=== PATIENT | female | born 1960 | race Caucasian/White ===

== ENCOUNTER 2017-12-27 10:32 | Inpatient (IN) ==
[2017-12-27] MEDS ORDERED: ASPIRIN 325 MG TABLET PO ONE (11:24)
[2017-12-27] MEDS ORDERED: MAGNESIUM SULF RIDER 2 GM in PREMIX 1 EACH IV PRN ×2 (11:24→20:10)
[2017-12-27] MEDS ORDERED: DIAZEPAM 5 MG TABLET PO ONE ×2 (11:24→20:10)
[2017-12-27] MEDS ORDERED: diphenhydrAMINE CAP 25 MG CAPSULE PO ONE ×2 (11:24→20:10)
[2017-12-27] MEDS ORDERED: POTASSIUM CHLORIDE RIDER 10 MEQ in PREMIX 1 EACH IV PRN ×2 (11:24→20:10)
[2017-12-27] MEDS ORDERED: LIDOCAINE 1% 20 ML VIAL ONE (11:46)
[2017-12-27] MEDS ORDERED: ASPIRIN 325 MG TABLET ONE (11:59)
[2017-12-27] MEDS ORDERED: DIAZEPAM 5 MG TABLET ONE (11:59)
[2017-12-27] MEDS ORDERED: diphenhydrAMINE CAP 25 MG CAPSULE ONE (11:59)
[2017-12-27] MEDS: SODIUM CHLORIDE 0.9% 1,000 ML IV SCH ×2 (12:02→17:26)
[2017-12-27] MEDS ORDERED: MIDAZOLAM 2 MG/2 ML VIAL ONE (12:47)
[2017-12-27] MEDS ORDERED: fentaNYL 100 MCG/2 ML VIAL ONE ×2 (12:48→14:26)
[2017-12-27] MEDS ORDERED: VERAPAMIL 5 MG/2 ML VIAL ONE (13:09)
[2017-12-27] MEDS ORDERED: NITROGLYCERIN DRIP 50 MG/250 ML BOTTLE IV ONE (13:09)
[2017-12-27] MEDS ORDERED: HEPARIN 5,000 UNIT/1 ML VIAL ONE (13:25)
[2017-12-27] MEDS ORDERED: TIROFIBAN 5,000 MCG/100 ML PREMIX IV ONE (14:49)
[2017-12-27] MEDS ORDERED: ALTEPLASE 2 MG VIAL ONE (15:19)
[2017-12-27] MEDS ORDERED: ACETAMINOPHEN 325 MG TABLET PO PRN (15:20)
[2017-12-27] MEDS ORDERED: NITROGLYCERIN SL 0.4 MG TABLET SL PRN (15:20)
[2017-12-27] MEDS ORDERED: LORazepam 2 MG/1 ML VIAL IV PRN (15:23)
[2017-12-27] MEDS: ALTEPLASE 12 MG in SODIUM CHLORIDE 0.9% 240 ML IV SCH (15:39)
[2017-12-27] MEDS ORDERED: HEPARIN 5,000 UNIT/1 ML VIAL IV PRN (16:14)
[2017-12-27] MEDS ORDERED: HEPARIN DRIP 25,000 UNITS/500 ML PREMIX IV ONE (16:17)
[2017-12-27] MEDS: oxyCODONE/ACETAMINOPHEN 5-325 MG TABLET PO PRN ×2 (16:40→23:06)
[2017-12-27] MEDS ORDERED: fentaNYL 100 MCG/2 ML VIAL IV ONE (16:58)
[2017-12-27] MEDS: ONDANSETRON 4 MG/2 ML VIAL IV PRN (19:52)
[2017-12-27] MEDS: fentaNYL 100 MCG/2 ML VIAL IV PRN (20:08)
[2017-12-27] MEDS ORDERED: diphenhydrAMINE CAP 50 MG CAPSULE PO ONE (21:00)
[2017-12-28] MEDS: fentaNYL 100 MCG/2 ML VIAL IV PRN ×3 (00:40→09:07)
[2017-12-28] MEDS: ONDANSETRON 4 MG/2 ML VIAL IV PRN ×2 (02:02→09:12)
[2017-12-28] MEDS ORDERED: PROMETHAZINE 25 MG/1 ML VIAL IM ONE (03:40)
[2017-12-28] MEDS ORDERED: hydrALAZINE 20 MG/1 ML VIAL IV PRN (03:43)
[2017-12-28] MEDS: SODIUM CHLORIDE 0.9% 1,000 ML IV SCH ×2 (04:12→09:03)
[2017-12-28 06:21] LABS: Basophils % 0.2 % (0.0-0.8); Hematocrit 29.3 VOL% (35.7-47.0); Immature Granulocytes % 0.5 %; Immature Granulocytes Absolute 0.03 #; Lymphocytes # 0.3 10*3/uL (1.4-4.0); Lymphocytes % 5.5 % (21.3-54.2); Mean Corpuscular HGB Conc 35.2 GM/DL (32-36); Mean Corpuscular Hemoglobin 38 PG (27-34); Mean Corpuscular Volume 107.3 FL (87-102); Mean Platelet Volume 10.2 FL (9.6-12.0); Monocytes # 0.1 10*3/uL (0.11-0.8); Monocytes % 1.6 % (1.7-12.7); Neutrophils # 5.7 10*3/uL (1.4-7.4); Neutrophils % 92.2 % (38.7-73.9); Red Blood Count 2.73 MC/CUMM (3.8-5.5); Red Cell Distribution Width 14.8 % (9.3-17.3); White Blood Count 6.2 T/CUMM (4-12)
[2017-12-28] MEDS: ALTEPLASE 12 MG in SODIUM CHLORIDE 0.9% 240 ML IV SCH (06:28)
[2017-12-28 06:30] LABS: PT Patient Result 10.2 SECS
[2017-12-28 06:36] LABS: Hemoglobin 10.3 GM/DL (12.0-16.0)
[2017-12-28 06:37] LABS: Platelet Count 136 T/CUMM (130-400)
[2017-12-28 06:41] LABS: Calcium 8.1 MG/DL (8.5-10.1); Osmolality,Calculated 274.7 MOS/KG (273-304); Potassium 3.9 MMOL/L (3.5-5.1)
[2017-12-28 06:53] LABS: Lymphocytes 5 % (20-55); Segmented Neutrophils 95 % (50-85); Total Cells Counted 100
[2017-12-28 06:54] LABS: Hypochromasia 1+; Ovalocytes Slight; Platelet Estimate Normal
[2017-12-28] MEDS ORDERED: ALBUTEROL 2.5 MG/3 ML NEB RESP TX PRN (09:02)
[2017-12-28] MEDS ORDERED: NON-FORMULARY MEDICATION (Albuterol Sulfate [Ventolin Hfa] 2 PUFF) INH PRN (09:02)
[2017-12-28] MEDS ORDERED: CYCLOBENZAPRINE 10 MG TABLET PO PRN (09:02)
[2017-12-28] MEDS: ASPIRIN EC 81 MG TABLET PO SCH (09:57)
[2017-12-28] MEDS ORDERED: fentaNYL 100 MCG/2 ML VIAL ONE (11:59)
[2017-12-28] MEDS: GABAPENTIN 300 MG CAPSULE PO SCH (14:55)
[2017-12-28] MEDS: DIPHENOXYLATE/ATROPINE 2.5-0.025 MG TABLET PO SCH ×2 (14:56→20:47)
[2017-12-28] MEDS ORDERED: MAGNESIUM HYDROXIDE SUSP 30 ML UDCUP PO PRN (17:21)
[2017-12-28] MEDS ORDERED: diphenhydrAMINE CAP 25 MG CAPSULE PO PRN (17:21)
[2017-12-28] MEDS: ALPRAZolam 0.5 MG TABLET PO SCH (20:48)
[2017-12-28] MEDS: MECLIZINE 25 MG TABLET PO SCH (20:48)
[2017-12-28] MEDS ORDERED: GABAPENTIN 300 MG CAPSULE PO SCH (21:00)
[2017-12-29 05:58] LABS: Basophils % 0.2 % (0.0-0.8); Eosinophils % 0.4 % (0.00-10.9); Hematocrit 28.6 VOL% (35.7-47.0); Hemoglobin 9.8 GM/DL (12.0-16.0); Immature Granulocytes % 0.7 %; Immature Granulocytes Absolute 0.03 #; Lymphocytes # 1.2 10*3/uL (1.4-4.0); Lymphocytes % 27.6 % (21.3-54.2); Mean Corpuscular HGB Conc 34.3 GM/DL (32-36); Mean Corpuscular Hemoglobin 38 PG (27-34); Mean Corpuscular Volume 110.9 FL (87-102); Mean Platelet Volume 9.8 FL (9.6-12.0); Monocytes # 0.3 10*3/uL (0.11-0.8); Monocytes % 6.2 % (1.7-12.7); Neutrophils # 2.9 10*3/uL (1.4-7.4); Neutrophils % 64.9 % (38.7-73.9); Platelet Count 129 T/CUMM (130-400); Red Blood Count 2.58 MC/CUMM (3.8-5.5); Red Cell Distribution Width 14.8 % (9.3-17.3); White Blood Count 4.5 T/CUMM (4-12)
[2017-12-29 06:19] LABS: Hypochromasia 1+; Ovalocytes Slight; Platelet Estimate Normal
[2017-12-29 06:26] LABS: Calcium 8.6 MG/DL (8.5-10.1); Osmolality,Calculated 281.1 MOS/KG (273-304)
[2017-12-29] MEDS ORDERED: azaTHIOprine 50 MG TABLET PO SCH (09:00)
[2017-12-29] MEDS ORDERED: PANTOPRAZOLE 40 MG TABLET PO SCH (09:00)
[2017-12-29] MEDS ORDERED: FOLIC ACID 1 MG TABLET PO SCH (09:00)
[2017-12-29] MEDS ORDERED: GABAPENTIN 300 MG CAPSULE PO SCH (09:00)
[2017-12-29] MEDS ORDERED: SUMAtriptan 25 MG TABLET PO PRN (09:00)
[2017-12-29] MEDS ORDERED: ROSUVASTATIN 20 MG TABLET PO SCH (09:00)
[2017-12-29] MEDS ORDERED: CLOPIDOGREL 75 MG TABLET PO SCH (09:00)
[2017-12-29] MEDS: MECLIZINE 25 MG TABLET PO SCH (09:59)
[2017-12-29] MEDS: ASPIRIN EC 81 MG TABLET PO SCH (09:59)
[2017-12-29] MEDS: ALPRAZolam 0.5 MG TABLET PO SCH (10:00)
[2017-12-29] MEDS: DIPHENOXYLATE/ATROPINE 2.5-0.025 MG TABLET PO SCH (10:00)
[2017-12-29] MEDS: GABAPENTIN 300 MG CAPSULE PO SCH (12:28)
[2017-12-29 13:27] VITALS: BP 93/62
[2017-12-31] MEDS ORDERED: fentaNYL 75 MCG/HR PATCH TRANSDERM SCH (09:00)
== END 2017-12-29 14:30 | disposition home or self-care (01) | DRG 315 ==
LOC: N.CL 10:32 → N.ICU 15:27 → N.CC 12-28 18:19
PROVIDERS: ADMIT Internal Medicine Cardiovascular Disease; ATTEND Internal Medicine Cardiovascular Disease